=== PATIENT | female | born 1960 | race Caucasian/White ===

== ENCOUNTER 2019-05-12 06:52 | Day surgery (SDC) | payer MEDICAID, SELFPAY ==
--- NOTE | 2019-05-12 07:43 | ANES.PREANES ---
Pre-Anesthetic Assessment Pre-Anesthetic Assessment: Height/Weight: Height 1.66 m Weight 68.039 kg Proposed Procedure: Operation Date: 05/12/19 08:30 Proposed Procedures p EGD(Not Applicable) - Hai Fagan MD s Colonoscopy(Not Applicable) - Hai Fagan MD Social: Social History: Tobacco and No alcohol Exam: Pre-Anes Outpt Exam: alert, oriented x 3, clear to auscultation bilaterally and regular rate & rhythm Airway: Submandibular: WNL Cervical ROM: WNL MP: 1 Dentition: False Pulmonary: Pulmonary: COPD GI: GI: GERD Neuropsych: Neuropsych: Anxiety Anesthetic Plan: ASA status: III Anesthesia: Anesthesia Evaluation and MAC Risk of > 500 ml blood loss (7ml/kg in children): No PFSH Anesthesia PFSH: Medical History (Updated 05/12/19 @ 07:44 by Scott Breen MD) Anxiety (Acute) CVA (cerebral vascular accident) (Acute) Depression (Acute) Surgical History (Updated 05/12/19 @ 07:44 by Scott Breen MD) H/O hysterectomy with oophorectomy (Acute) History of tubal ligation (Acute) Social History (Updated 05/11/19 @ 13:54 by Dominique Roberts) Smoking and tobacco status: current every day smoker cigarettes Packs smoked per day: 1 Quit status (tobacco): not considering quitting Smoking risk assessment/counseling performed?: No Data Anesthesia Cardiac Studies: No Data to Display
[2019-05-12] MEDS: sodium chloride 0.9% 1,000 ML 30 ML (07:45)
[2019-05-12 08:14] VITALS: BMI 22.7
--- NOTE | 2019-05-12 08:46 | PM.HPUD ---
H&P update H&P Update: DATE OF SURGERY/PROCEDURE: 05/12/19 DATE H&P PERFORMED: 05/12/19 PLANNED PROCEDURE: Operation Date: 05/12/19 08:30 Proposed Procedures p EGD(Not Applicable) - Hai Fagan MD s Colonoscopy(Not Applicable) - Hai Fagan MD Full H&P HPI: PRIMARY INDICATION/DIAGNOSIS FOR SURGICAL PROCEDURE: 1. Chronic GERD 2. Rectal bleeding PLANNED PROCEDURE: Esophagogastroduodenoscopy Colonoscopy HPI: The patient is presenting for an EGD as well as a colonoscopy. She has been having chronic GERD as well as chronic abdominal pain as an indication for her EGD. She has rectal bleeding as indication for her colonoscopy. Perinent History: Medical/Surgical History: Medical History (Updated 05/12/19 @ 07:44 by Scott Breen MD) Anxiety (Acute) CVA (cerebral vascular accident) (Acute) Depression (Acute) Social History: Social History Smoking and tobacco status: current every day smoker cigarettes Packs smoked per day: 1 Quit status (tobacco): not considering quitting Smoking risk assessment/counseling performed?: No A&P Assessment and plan (1) Chronic GERD: Status: Acute Code(s): K21.9 - Gastro-esophageal reflux disease without esophagitis (2) Rectal bleeding: We discussed the risks and benefits of both the EGD and the colonoscopy. We discussed the risks of bleeding, perforation, and sedation. The patient has no further questions and wishes to proceed. Status: Acute Code(s): K62.5 - Hemorrhage of anus and rectum (3) Generalized abdominal pain: Status: Acute Code(s): R10.84 - Generalized abdominal pain
--- NOTE | 2019-05-12 08:51 | PM.HPUD ---
H&P update H&P Update: DATE OF SURGERY/PROCEDURE: 05/12/19 PLANNED PROCEDURE: Operation Date: 05/12/19 08:30 Proposed Procedures p EGD(Not Applicable) - Hia Fagan MD s Colonoscopy(Not Applicable) - Hai Fagan MD Full H&P Perinent History: Medical/Surgical History: Medical History (Updated 05/12/19 @ 08:50 by Hai Fagan MD) Anxiety (Acute) CVA (cerebral vascular accident) (Acute) Depression (Acute) Social History: Social History Smoking and tobacco status: current every day smoker cigarettes Packs smoked per day: 1 Quit status (tobacco): not considering quitting Smoking risk assessment/counseling performed?: No
[2019-05-12 09:26] VITALS: BP 116/74; RESP 16; TEMP 36.1; O2SAT 97
[2019-05-12 09:47] VITALS: BP 115/81; PULSE 76; RESP 18; O2SAT 98
--- NOTE | 2019-05-12 10:19 | ANE.PACU ---
 Inpatient post-anesthesia follow up: Airway intact: Yes Vital signs: Temperature 97.0 F Pulse Rate [Right Radial] 76 Respiratory Rate 18 Blood Pressure [Ri ght Arm] 115/81 Pulse Oximetry 98 Oxygen Delivery Me thod Room Air Oxygen Flow Rate 3 Fraction of Inspir ed Oxygen Hydration adequate: Yes Nausea and vomiting: No Mental status: Baseline
== END 2019-05-12 10:22 | disposition home or self-care (01) ==
PROVIDERS: Family Provider Internal Medicine; Visit Provider Family Medicine
PROC: 0DJ08ZZ Inspection of Upper Intestinal Tract, Via Natural or Artificial Opening Endoscopic (ICD-10-PCS; CPT 43235; principal; 2019-05-12 08:30)
PROC: 0DJD8ZZ Inspection of Lower Intestinal Tract, Via Natural or Artificial Opening Endoscopic (ICD-10-PCS; CPT 45378; 2019-05-12 08:30)
DX: K62.5 Hemorrhage of anus and rectum (principal); R10.84 Generalized abdominal pain; K64.8 Other hemorrhoids; K21.0 Gastro-esophageal reflux disease with esophagitis; K29.70 Gastritis, unspecified, without bleeding; K29.80 Duodenitis without bleeding; Z86.73 Personal history of transient ischemic attack (TIA), and cerebral infarction without residual deficits; F32.9 Major depressive disorder, single episode, unspecified; F17.210 Nicotine dependence, cigarettes, uncomplicated; Z82.49 Family history of ischemic heart disease and other diseases of the circulatory system; Z79.82 Long term (current) use of aspirin; J44.9 Chronic obstructive pulmonary disease, unspecified; F41.9 Anxiety disorder, unspecified
CPT/HCPCS: 43239; 45378; 88305; 99221; J2704; J7030

== ENCOUNTER 2021-08-01 13:17 | Outpatient (CLI) | payer MEDICAID, SELFPAY ==
--- NOTE | 2021-08-01 13:24 | MM_ITS ---
WS: [id number] SCREENING 3D TOMOSYNTHESIS DIGITAL MAMMOGRAM WITH CAD HISTORY: SCREENING COMPARISON: None available. Bilateral CC and MLO views submitted. Computer aided detection analyzed. Breast composition: There are scattered areas of fibroglandular density. There are focal asymmetries in the upper-outer quadrant of each breast which are ill-defined. In the lateral LEFT breast near 2-3 o'clock is an 11 mm asymmetry which is slightly more prominent as compared to the RIGHT breast. MM/[place] [id number] IMPRESSION: BI-RADS: 0-Incomplete: Need additional imaging evaluation FOLLOW UP: Need Additional Imaging Bilateral breast: Spot compression 3-D views (CC and MLO). True ML. Ultrasound to follow if abnormality persists.
== END 2021-08-01 13:18 | disposition home or self-care (01) ==
LOC: RAD 13:18
PROVIDERS: Visit Provider Nurse Practitioner Family
DX: Z12.31 Encounter for screening mammogram for malignant neoplasm of breast (principal)
CPT/HCPCS: 77063; 77067

== ENCOUNTER 2022-03-10 10:17 | Outpatient (CLI) | payer MEDICAID, SELFPAY ==
--- NOTE | 2022-03-10 | US_ITS ---
WS: [id number] ULTRASOUND BILATERAL BREAST HISTORY: ABNORMAL MAMMO COMPARISON: 12/29/2021 and 08/01/2021 TECHNIQUE: 2-D and Doppler. RIGHT breast: Ovoid circumscribed hypoechoic nodule in the RIGHT breast at 11:00 3 cm from the nipple . This nodule measures 10 x 5 x 10 mm. No increased vascularity. Corresponds to the mammographic abno rmality. LEFT breast: No suspicious mass in the LEFT breast. Focal area of fibroglandular tissue in the upper outer quadrant corresponds to the mammographic abnormality. US/US breast BI limited* [id number] IMPRESSION: BI-RADS: 4-Suspicious Finding-Biopsy Should Be Considered FOLLOW-UP: Biopsy Recommended Ultrasound-guided biopsy recommended of the RIGHT breast mass at 11:00, 3 cm fr om the nipple.
== END 2022-03-10 10:18 | disposition home or self-care (01) ==
PROVIDERS: PCP Nurse Practitioner Family; Visit Provider Nurse Practitioner Family
DX: R92.8 Other abnormal and inconclusive findings on diagnostic imaging of breast (principal); N63.11 Unspecified lump in the right breast, upper outer quadrant
CPT/HCPCS: 76642

== ENCOUNTER 2022-04-10 12:05 | Outpatient (CLI) | payer MEDICAID, SELFPAY ==
--- NOTE | 2022-04-10 12:16 | US_ITS ---
WS: [id number] ULTRASOUND-GUIDED RIGHT BREAST BIOPSY HISTORY: ABNORMAL BREAST U/S COMPARISON: 03/10/2022, 08/01/2021 Procedure, risks and complications are explained to the patient. Medications are reviewed. Consent is obtained. The mass in the RIGHT breast is localized with ultrasound. Mass localizes to 11:00. Skin is cleansed with ChloraPrep and anesthetized with 1% buffered lidocaine. Small dermatome is made. Under sterile c onditions mass is biopsied with a 14-gauge Achieve needle. Multiple core biopsies are performed. Mate rial placed in formalin and sent to pathology for review. No complications encountered. Breast tissue marker (Bard ultrasound enhanced ribbon): Single. Patient left the radiology suite with no complications. Patient is instructed to return to [facility] or [facility] with any concerns. US/[place] [id number] IMPRESSION: 1. Uncomplicated core needle biopsy RIGHT breast mass at 11:00. PATHOLOGY: Breast tissue with fibroadenomatoid change and stromal sclerosis. No malignancy. RECOMMENDATION: Return to annual screening mammography.
== END 2022-04-10 12:06 | disposition home or self-care (01) ==
PROVIDERS: PCP Nurse Practitioner Family; Visit Provider Nurse Practitioner Family
DX: R92.8 Other abnormal and inconclusive findings on diagnostic imaging of breast (principal); N63.11 Unspecified lump in the right breast, upper outer quadrant
CPT/HCPCS: 19083; 88305

== ENCOUNTER → 2022-12-17 10:18 | Outpatient (BNVA) | payer MEDICAID, SELFPAY | PROVIDERS: PCP Nurse Practitioner Family; Referring Provider Nurse Practitioner Family; Visit Provider Podiatrist Foot & Ankle Surgery | DX: M20.42 Other hammer toe(s) (acquired), left foot; I63.9 Cerebral infarction, unspecified | CPT/HCPCS: 73630; 99204 ==

== ENCOUNTER → 2023-01-26 14:56 | Outpatient (BNVA) | payer MEDICAID, SELFPAY | PROVIDERS: PCP Nurse Practitioner Family; Visit Provider Podiatrist Foot & Ankle Surgery | DX: M20.42 Other hammer toe(s) (acquired), left foot (principal); I63.9 Cerebral infarction, unspecified | CPT/HCPCS: 99213 ==

== ENCOUNTER → 2023-04-20 12:53 | Outpatient (BNVA) | payer MEDICAID, SELFPAY | PROVIDERS: PCP Nurse Practitioner Family; Visit Provider Podiatrist Foot & Ankle Surgery | DX: M20.42 Other hammer toe(s) (acquired), left foot (principal); I63.9 Cerebral infarction, unspecified | CPT/HCPCS: 99213 ==

== ENCOUNTER 2023-04-28 11:15 | Outpatient (CLI) | payer MEDICAID, SELFPAY ==
--- NOTE | 2023-04-28 12:00 | USCV_ITS ---
Amairani Marcus Age: 62 Gender: F : 1960 Exam Date: 04/28/2023 12:23 Ordering Phys: Flako Oakley DPM Technologist: [place] [facility] [place]: pad RIGHT LEFT Brachial 124.00 mmHg Brachial 125.00 mmHg Pressure (mmHg) Waveform Pressure (mmHg) Waveform 131.00 Above Knee 137.00 142.00 Below Knee 146.00 129.00 WINTERIZER 133.00 127.00 DPA 125.00 1.00 Ankle/Brachial Index 1.00 124.00 Pre-Exercise Toe Pressure 125.00 0.99 Pre-Exercise Toe/Brachial Index 1.00 FINDINGS Resting ELINA of 1.0 bilaterally Resting TBI of 0.9 in the right side and 1.0 on the left side CONCLUSIONS Normal resting ABIs and TBIs bilaterally suggesting no significant arterial obstruction Dr Meka Dodd MD [facility] (Electronically Signed) Final Date: 01 May 2023 14:57 S
== END 2023-04-28 11:16 | disposition home or self-care (01) ==
LOC: RAD 11:15
PROVIDERS: PCP Nurse Practitioner Family; Visit Provider Podiatrist Foot & Ankle Surgery
DX: I73.9 Peripheral vascular disease, unspecified (principal)
CPT/HCPCS: 93923

== ENCOUNTER → 2023-05-25 12:29 | Outpatient (BNVA) | payer MEDICAID, SELFPAY | PROVIDERS: PCP Nurse Practitioner Family; Visit Provider Podiatrist Foot & Ankle Surgery | DX: M20.42 Other hammer toe(s) (acquired), left foot; M79.672 Pain in left foot; I63.9 Cerebral infarction, unspecified | CPT/HCPCS: 28011; A6219 ==

== ENCOUNTER → 2023-06-01 10:50 | Outpatient (BNVA) | payer MEDICAID, SELFPAY | PROVIDERS: PCP Nurse Practitioner Family; Visit Provider Podiatrist Foot & Ankle Surgery | DX: M20.42 Other hammer toe(s) (acquired), left foot (principal); I63.9 Cerebral infarction, unspecified | CPT/HCPCS: 99024 ==

== ENCOUNTER → 2023-07-30 11:25 | Outpatient (BNVA) | payer MEDICAID, SELFPAY | PROVIDERS: PCP Nurse Practitioner Family; Visit Provider Student in an Organized Health Care Education/Training Program | DX: M79.642 Pain in left hand | CPT/HCPCS: 73130; 99203 ==

== ENCOUNTER → 2024-07-19 10:49 | Outpatient (BNVA) | payer MEDICAID, SELFPAY | PROVIDERS: PCP Nurse Practitioner Family; Visit Provider Specialist | DX: G31.84 Mild cognitive impairment of uncertain or unknown etiology (principal) | CPT/HCPCS: 99205 ==

== ENCOUNTER 2024-08-01 15:20 | Outpatient (CLI) | payer MEDICAID, SELFPAY ==
--- NOTE | 2024-08-01 15:30 | USCV_ITS ---
Amrit Amairani Age: 64 Gender: F : 1960 Exam Date: 08/01/2024 15:29 Ordering Phys: Joelle Castro MD Technologist: USR Exam Location: [facility] [place] Indication: cerebral infarction Risk Factors: Previous Vascular Surgery: Right Brachial BP: / Left Brachial BP: / Right Left Velocity (cm/s) Spectral Plaque Velocity (cm/s) Spectral Plaque Syst/Diast Broadening Syst/Diast Broadening 65.90/ 23.20 Prox CCA 72.60 / 21.60 68.50/ 25.80 Mid CCA 80.30 / 32.00 67.20/ 24.50 Distal CCA 83.60 / 26.60 45.60/ 14.70 Prox ICA 42.30 / 12.00 35.40/ 15.10 Mid ICA 46.30 / 20.10 49.70/ 20.90 Distal ICA 52.50 / 21.60 77.70 ECA 53.00 0.70 ICA/CCA 0.50 Antegrade Vertebral Antegrade 28.80/ 9.60 cm/s 32.90/ 12.40 cm/s Tri Subclavian Tri 47.80 52.10 CONCLUSIONS Right ICA stenosis <50%. Mild atheromatous plaque right carotid bulb/ICA. Left ICA stenosis <50%. Mild atheromatous plaque left carotid bulb/ICA. Intimal thickening in the common carotid arteries and internal carotid arteries bilaterally. Normal antegrade Doppler flow noted in the right vertebral artery. Normal antegrade Doppler flow noted in the left vertebral artery. Mauro Caraballo MD (Electronically Signed) Final Date: 01 August 2024 16:20 S
== END 2024-08-01 15:21 | disposition home or self-care (01) ==
LOC: RAD 15:21
PROVIDERS: PCP Nurse Practitioner Family; Visit Provider Specialist
DX: I63.9 Cerebral infarction, unspecified (principal); I65.23 Occlusion and stenosis of bilateral carotid arteries
CPT/HCPCS: 93880

== ENCOUNTER 2024-08-10 11:14 | Outpatient (CLI) | payer MEDICAID, SELFPAY ==
--- NOTE | 2024-08-10 11:00 | MR_ITS ---
WS: [id number] MRI HEAD WITHOUT CONTRAST TECHNIQUE: Sagittal T1, T2 axial, T2 axial FLAIR, axial and coronal T1 images, axial susceptibility weighted imaging, axial diffusion weighted images, and coronal T2 images were obtained. CLINICAL INFORMATION: G31.84 - Mild cognitive impairment of uncertain or unknow... COMPARISON: CT head 2018 and MRI 2016 FINDINGS: No evidence of restricted diffusion to suggest acute ischemia. Moderate small vessel changes with moderate parenchymal volume loss. Chronic infarct in the RIGHT MCA territory with associated encephalomalacia and gliosis. Ex vacuo dilatation RIGHT lateral ventricle. Infarct is similar to 2018. Wallerian degeneration RIGHT midbrain Normal posterior fossa. Normal vascular flow voids at the skull base. No extra- axial fluid collections. Paranasal sinuses and mastoid air cells are well aerated. No hemosiderin on the susceptibility weighted images. Normal optic chiasm and pituitary infundibulum. Mild atrophy of the RIGHT greater than LEFT temporal lobes hippocampal formations. MR/MR head wo con* [id number] IMPRESSION: 1. No evidence of restricted diffusion to suggest acute ischemia. 2. Chronic RIGHT MCA territory infarct similar to 2018 with encephalomalacia a nd gliosis. Wallerian degeneration RIGHT midbrain 3. Moderate small vessel changes with moderate parenchymal volume loss has pro gressed since the prior MRI 2016. 4. No hemosiderin on susceptibility weighted images. 5. No other acute findings.
== END 2024-08-10 11:15 | disposition home or self-care (01) ==
PROVIDERS: PCP Nurse Practitioner Family; Visit Provider Specialist
DX: G31.84 Mild cognitive impairment of uncertain or unknown etiology (principal); G98.8 Other disorders of nervous system; G31.89 Other specified degenerative diseases of nervous system; R93.0 Abnormal findings on diagnostic imaging of skull and head, not elsewhere classified
CPT/HCPCS: 70551

== ENCOUNTER 2024-09-12 16:04 | Outpatient (CLI) | payer MEDICAID, SELFPAY ==
--- NOTE | 2024-09-12 16:10 | CT_ITS ---
WS: [id number] LDCT LUNG CANCER SCREENING HISTORY: NICOTINE DEPENDENCE, CIGARETTES TECHNIQUE: Axial imaging performed from the apices to 1 cm below the costophrenic angles. Coronal and sagittal reformats are submitted with axial MIP series. All CT scans at [facility] use at least one of these dose optimization techniques: automated exposure control; mA and/or kV adjustment per patient size (includes targeted exams where dose is matched to clinical indication); or iterative reconstruction. DLP: 60.50 mGy.cm DIvol: Mean CTDIvol: 1.20 (mGy) COMPARISON: None available. Diagnostic quality: Satisfactory Lungs: Lungs are well aerated. No pulmonary mass or nodule. Breathing motion artifact. No endobronchial lesions. Heart: Normal size heart with no pericardial effusion.. Other findings: Scattered coronary artery calcifications. Calcified hilar and mediastinal lymph nodes. No pathologically enlarged lymph nodes. Normal size aorta and pulmonary artery. Small hiatal hernia. Cholelithiasis without evidence for acute cholecystitis. L1 compression fracture versus Schmorl's node. CT/CT lung screening [id number] IMPRESSION: LUNG-RADS: 1-Negative FOLLOW UP: 12 Month: Continue annual screening with LDCT OTHER FINDINGS (S MODIFIER): None.
== END 2024-09-12 16:05 | disposition home or self-care (01) ==
PROVIDERS: PCP Nurse Practitioner Family; Visit Provider Nurse Practitioner Family
DX: Z12.2 Encounter for screening for malignant neoplasm of respiratory organs (principal); F17.210 Nicotine dependence, cigarettes, uncomplicated; I25.10 Atherosclerotic heart disease of native coronary artery without angina pectoris; R59.0 Localized enlarged lymph nodes; K44.9 Diaphragmatic hernia without obstruction or gangrene; K80.20 Calculus of gallbladder without cholecystitis without obstruction; R93.7 Abnormal findings on diagnostic imaging of other parts of musculoskeletal system
CPT/HCPCS: 71271

== ENCOUNTER → 2024-11-15 10:37 | Outpatient (BNVA) | payer MEDICAID, SELFPAY | PROVIDERS: PCP Nurse Practitioner Family; Visit Provider Specialist | DX: G31.84 Mild cognitive impairment of uncertain or unknown etiology (principal); O99.334 Smoking (tobacco) complicating childbirth | CPT/HCPCS: 36415; 82542; 83520; 99214 ==